=== PATIENT | male | born 1940 | race Caucasian/White ===

== ENCOUNTER 2016-11-05 13:30 | Emergency (ER) | payer OTHER ==
[~2016-11-05] VITALS: Ht 160 cm; Wt 65.8 kg
[~2016-11-05 13:30] MED LIST: AMLODIPINE BESYL5 M1 PO; ANT12.5 PO; CARBIDOPA25 MG PO; LIPI20 PO; METFORMIN HCL1000 MG PO; NOR5 PO; SEROQUEL100 MG PO; SEROQUEL200 MG PO; SERTRALINE HYD100 MG PO; SINEMET 25-1001 TAB PO; TRAZODONE HYDR100 MG PO; ZESTRIL20 MG PO
[2016-11-05 15:21] LABS: BASOPHIL % 0.1 % (0-2); PLATELET COUNT 107 x10^3mcL (130-400); RED CELL DISTRIBUTION WIDTH 13.4 % (11.5-14.5)
[2016-11-05 15:24] LABS: CALCIUM 8.6 mg/dL (8.5-10.1); CARBON DIOXIDE 30.4 mmol/L (21-32); CHLORIDE SERUM 108 mmol/L (98-107); CREATININE SERUM 1.1 mg/dL (0.7-1.3); GLUCOSE SERUM 168 mg/dL (74-106); POTASSIUM SERUM 4.2 mmol/L (3.5-5.1); SODIUM SERUM 143 mmol/L (136-145)
[2016-11-05 15:36] LABS: ALBUMIN 3.7 g/dL (3.4-5.0); ALKALINE PHOSPHATASE 64 U/L (46-116); ALT/SGPT 49 U/L (16-63); AST/SGOT 29 U/L (15-37); BILIRUBIN TOTAL 0.3 mg/dL (0.20-1.00); TOTAL PROTEIN, SERUM 6.6 g/dL (6.4-8.2)
[2016-11-05 16:42] VITALS: BP 146/93
== END 2016-11-05 16:42 | disposition home or self-care (01) ==
LOC: ED 13:30
PROVIDERS: Specialist
DX: R55 Syncope and collapse (principal); R53.1 Weakness; F32.9 Major depressive disorder, single episode, unspecified; D64.9 Anemia, unspecified; I10 Essential (primary) hypertension; E11.9 Type 2 diabetes mellitus without complications
CPT/HCPCS: 36415; 83880

== ENCOUNTER 2017-08-01 20:09 | Emergency (ER) | payer OTHER ==
[~2017-08-01] VITALS: Ht 160 cm; Wt 65.8 kg
[2017-08-01 20:16] VITALS: Ht 160 cm; Wt 65.8 kg
[2017-08-01 20:56] LABS: BASOPHIL % 0.1 % (0-2); RED CELL DISTRIBUTION WIDTH 14.4 % (11.5-14.5)
[2017-08-01 20:59] LABS: PLATELET COUNT 122 x10^3mcL (130-400)
[2017-08-01 21:02] LABS: CALCIUM 8.4 mg/dL (8.5-10.1); CARBON DIOXIDE 27.3 mmol/L (21-32); CHLORIDE SERUM 106 mmol/L (98-107); CREATININE SERUM 1.3 mg/dL (0.7-1.3); GLUCOSE SERUM 194 mg/dL (74-106); POTASSIUM SERUM 3.7 mmol/L (3.5-5.1); SODIUM SERUM 139 mmol/L (136-145)
[2017-08-01 21:07] LABS: ALBUMIN 3.5 g/dL (3.4-5.0); ALKALINE PHOSPHATASE 84 U/L (46-116); ALT/SGPT 45 U/L (16-63); AST/SGOT 44 U/L (15-37); BILIRUBIN TOTAL 0.51 mg/dL (0.20-1.00); TOTAL PROTEIN, SERUM 6.5 g/dL (6.4-8.2)
[2017-08-01 21:59] LABS: microscopic required? YES; urine erythrocyte 2+ (NEGATIVE)
[2017-08-01 22:45] VITALS: BP 132/67
== END 2017-08-01 22:45 | disposition short-term general hospital (02) ==
LOC: ED 20:09
PROVIDERS: Emergency Medicine
DX: S40.021A Contusion of right upper arm, initial encounter (principal); S00.01XA Abrasion of scalp, initial encounter; I10 Essential (primary) hypertension; E11.9 Type 2 diabetes mellitus without complications; F41.9 Anxiety disorder, unspecified; E78.5 Hyperlipidemia, unspecified; W19.XXXA Unspecified fall, initial encounter; Y93.89 Activity, other specified; Y92.89 Other specified places as the place of occurrence of the external cause; Y99.8 Other external cause status
CPT/HCPCS: 36415; 83880; Q0092

== ENCOUNTER 2017-08-27 12:00 | Inpatient (IN) | payer OTHER ==
[~2017-08-27] VITALS: Ht 160 cm; Wt 68.2 kg
[2017-08-27 12:08] VITALS: Ht 160 cm; Wt 68.2 kg
[2017-08-27 13:11] LABS: BASOPHIL % 0.3 % (0-2); PLATELET COUNT 143 x10^3mcL (130-400); RED CELL DISTRIBUTION WIDTH 13.6 % (11.5-14.5)
[2017-08-27 13:51] LABS: CALCIUM 8.7 mg/dL (8.5-10.1); CARBON DIOXIDE 25.1 mmol/L (21-32); CHLORIDE SERUM 110 mmol/L (98-107); CREATININE SERUM 1.3 mg/dL (0.7-1.3); GLUCOSE SERUM 146 mg/dL (74-106); SODIUM SERUM 146 mmol/L (136-145)
[2017-08-27] MEDS ORDERED: ZOLOFT100 MG PO (13:57)
[2017-08-27 13:59] LABS: ALBUMIN 3.5 g/dL (3.4-5.0); ALKALINE PHOSPHATASE 114 U/L (46-116); ALT/SGPT 24 U/L (16-63); AST/SGOT 42 U/L (15-37); BILIRUBIN TOTAL 0.51 mg/dL (0.20-1.00); TOTAL PROTEIN, SERUM 6.7 g/dL (6.4-8.2)
[2017-08-27] MEDS ORDERED: SEROQUEL50 M1 PO ×2 (14:00)
[2017-08-27] MEDS ORDERED: BUSPIRONE HCL5 MG PO (14:01)
[2017-08-27] MEDS ORDERED: GLIMEPIRIDE4 M1 PO (14:01)
[2017-08-27 14:02] LABS: CHOLESTEROL 111 mg/dL (<200)
[2017-08-27] MEDS ORDERED: TRAZODONE50 M1 PO (14:03)
[2017-08-27 15:19] LABS: T3 TOTAL 0.96 ng/mL
[2017-08-27 15:33] LABS: CHOLESTEROL/HDL RATIO 1.9; MAGNESIUM 1.6 mg/dL (1.8-2.4); PHOSPHOROUS 4.1 mg/dL (2.5-4.9)
[2017-08-27 15:45] VITALS: BP 140/71
[2017-08-27 15:48] LABS: FREE T4 0.78 ng/dL (0.76-1.46)
[2017-08-27 15:50] LABS: FREE THYROXINE INDEX 1.4 ug/dL (1.4-4.5)
[2017-08-27 21:24] VITALS: BP 134/79
[2017-08-27 22:49] LABS: UA SPECIFIC GRAVITY >=1.030 (1.005-1.035); microscopic required? YES; urine erythrocyte TRACE (NEGATIVE)
[2017-08-27 22:58] LABS: AMPHETAMINE QUAL UR NONE DETECTED (See below)
[2017-08-28] VITALS (7 sets, daily range): BP systolic 125–182; BP diastolic 63–97
[2017-08-28 07:17] LABS: IRON 44 ug/dL (65-170)
[2017-08-28 07:18] LABS: TOTAL IRON BINDING CAPACITY 191 ug/dL (250-450)
[2017-08-28 08:06] LABS: BASOPHIL % 0.3 % (0-2); PLATELET COUNT 130 x10^3mcL (130-400); RED CELL DISTRIBUTION WIDTH 14.3 % (11.5-14.5)
[2017-08-28 08:22] LABS: RED BLOOD CELLS 3.31 M/mm3 (4.52-5.90)
[2017-08-28 08:25] LABS: CALCIUM 8.3 mg/dL (8.5-10.1); CARBON DIOXIDE 24.2 mmol/L (21-32); CHLORIDE SERUM 113 mmol/L (98-107); CREATININE SERUM 0.9 mg/dL (0.7-1.3); GLUCOSE SERUM 81 mg/dL (74-106); MAGNESIUM 2.1 mg/dL (1.8-2.4); PHOSPHOROUS 2.8 mg/dL (2.5-4.9); SODIUM SERUM 145 mmol/L (136-145)
[2017-08-29 05:54] VITALS: BP 152/79
[2017-08-29 06:32] LABS: BASOPHIL % 0.2 % (0-2); PLATELET COUNT 133 x10^3mcL (130-400); RED CELL DISTRIBUTION WIDTH 14.3 % (11.5-14.5)
[2017-08-29 07:05] LABS: CALCIUM 7.8 mg/dL (8.5-10.1); CARBON DIOXIDE 27.6 mmol/L (21-32); CHLORIDE SERUM 109 mmol/L (98-107); CREATININE SERUM 0.8 mg/dL (0.7-1.3); GLUCOSE SERUM 96 mg/dL (74-106); MAGNESIUM 1.6 mg/dL (1.8-2.4); PHOSPHOROUS 2.9 mg/dL (2.5-4.9); POTASSIUM SERUM 3.8 mmol/L (3.5-5.1); SODIUM SERUM 144 mmol/L (136-145)
[2017-08-29 09:52] VITALS: BP 180/86
[2017-08-29 17:16] VITALS: BP 169/84
[2017-08-29 20:15] VITALS: BP 143/85
[2017-08-30 05:28] VITALS: BP 140/70
[2017-08-30 06:24] LABS: BASOPHIL % 0.2 % (0-2); RED CELL DISTRIBUTION WIDTH 14.3 % (11.5-14.5)
[2017-08-30 06:39] LABS: CALCIUM 8.4 mg/dL (8.5-10.1); CARBON DIOXIDE 30.1 mmol/L (21-32); CHLORIDE SERUM 110 mmol/L (98-107); CREATININE SERUM 0.8 mg/dL (0.7-1.3); GLUCOSE SERUM 129 mg/dL (74-106); PHOSPHOROUS 3.4 mg/dL (2.5-4.9); POTASSIUM SERUM 4.4 mmol/L (3.5-5.1); SODIUM SERUM 146 mmol/L (136-145)
[2017-08-30 07:10] LABS: PLATELET COUNT 129 x10^3mcL (130-400)
[2017-08-30 08:27] VITALS: BP 138/77
[2017-08-30 14:23] VITALS: BP 177/85
[2017-08-30 16:55] VITALS: BP 178/93
[2017-08-30 17:44] VITALS: BP 164/93
[2017-08-30 21:10] VITALS: BP 152/84
[2017-08-31 05:41] VITALS: BP 158/76
[2017-08-31 07:02] LABS: BASOPHIL % 0.4 % (0-2); PLATELET COUNT 146 x10^3mcL (130-400)
[2017-08-31 07:28] LABS: CALCIUM 8.6 mg/dL (8.5-10.1); CARBON DIOXIDE 31.1 mmol/L (21-32); CHLORIDE SERUM 107 mmol/L (98-107); CREATININE SERUM 0.8 mg/dL (0.7-1.3); GLUCOSE SERUM 77 mg/dL (74-106); MAGNESIUM 1.6 mg/dL (1.8-2.4); PHOSPHOROUS 3.1 mg/dL (2.5-4.9); POTASSIUM SERUM 3.5 mmol/L (3.5-5.1); SODIUM SERUM 144 mmol/L (136-145)
[2017-08-31 08:45] VITALS: BP 170/96
[2017-08-31 11:30] VITALS: BP 119/78
[2017-08-31 17:38] VITALS: BP 163/88
[2017-08-31 17:51] VITALS: BP 163/88
[2017-08-31 21:12] VITALS: BP 166/84
[2017-09-01 00:54] VITALS: BP 154/78
[2017-09-01 06:00] VITALS: BP 143/68
[2017-09-01 07:11] LABS: BASOPHIL % 0.3 % (0-2); PLATELET COUNT 165 x10^3mcL (130-400); RED CELL DISTRIBUTION WIDTH 14.4 % (11.5-14.5)
[2017-09-01 07:17] LABS: CALCIUM 9.1 mg/dL (8.5-10.1); CARBON DIOXIDE 32.2 mmol/L (21-32); CHLORIDE SERUM 108 mmol/L (98-107); CREATININE SERUM 0.8 mg/dL (0.7-1.3); GLUCOSE SERUM 103 mg/dL (74-106); PHOSPHOROUS 3.3 mg/dL (2.5-4.9); POTASSIUM SERUM 4.6 mmol/L (3.5-5.1); SODIUM SERUM 145 mmol/L (136-145)
[2017-09-01] MEDS ORDERED: ATIVAN1 MG PO (11:51)
[2017-09-01 12:15] VITALS: BP 143/68
== END 2017-09-01 14:40 | DRG 604 ==
LOC: ED 12:00 → MU 14:34 → DU 14:34 → MU 08-29 11:44 → DU 08-29 11:45 → MU 09-01 14:40
PROVIDERS: Emergency Medicine; Family Medicine
PROC: 0HQ0XZZ Repair Scalp Skin, External Approach (ICD-10-PCS; principal; 2017-08-27)
PROC: 0HQ0XZZ Repair Scalp Skin, External Approach (ICD-10-PCS; 2017-08-27)
DX: S01.01XA Laceration without foreign body of scalp, initial encounter (principal); N17.0 Acute kidney failure with tubular necrosis; E87.0 Hyperosmolality and hypernatremia; F33.2 Major depressive disorder, recurrent severe without psychotic features; E11.51 Type 2 diabetes mellitus with diabetic peripheral angiopathy without gangrene; E86.0 Dehydration; E83.42 Hypomagnesemia; I10 Essential (primary) hypertension; F41.9 Anxiety disorder, unspecified; D64.9 Anemia, unspecified; E78.5 Hyperlipidemia, unspecified; F03.90 Unspecified dementia, unspecified severity, without behavioral disturbance, psychotic disturbance, mood disturbance, and anxiety; G47.00 Insomnia, unspecified; Z91.81 History of falling; Z68.26 Body mass index [BMI] 26.0-26.9, adult; Z86.73 Personal history of transient ischemic attack (TIA), and cerebral infarction without residual deficits; Z98.2 Presence of cerebrospinal fluid drainage device; E66.3 Overweight; W18.39XA Other fall on same level, initial encounter; Y93.89 Activity, other specified; Y92.018 Other place in single-family (private) house as the place of occurrence of the external cause
CPT/HCPCS: 82962; 83880; 84439; 97110-GP; 97116-GP; 97530-GP; 97535-GP; G0480; J0360; J2060; J2916; J3475; J3486; J3490; J7030; Q0092

== ENCOUNTER 2017-09-29 11:21 | Emergency (ER) | payer OTHER ==
[~2017-09-29] VITALS: Ht 160 cm; Wt 55.8 kg
[~2017-09-29 11:21] MED LIST changes: +ATIVAN1 MG PO; +BUSPIRONE HCL5 MG PO; +GLIMEPIRIDE4 M1 PO; +SEROQUEL50 M1 PO; +TRAZODONE50 M1 PO; +ZOLOFT100 MG PO
[2017-09-29 12:05] VITALS: BP 152/71
== END 2017-09-29 12:05 | disposition home or self-care (01) ==
LOC: ED 11:21
DX: Z48.02 Encounter for removal of sutures (principal); I10 Essential (primary) hypertension; G45.9 Transient cerebral ischemic attack, unspecified; E11.9 Type 2 diabetes mellitus without complications; F41.9 Anxiety disorder, unspecified

== ENCOUNTER 2018-11-18 17:35 | Emergency (ER) | payer OTHER ==
[~2018-11-18] VITALS: Ht 157.5 cm; Wt 65.8 kg
[2018-11-18 17:47] VITALS: Ht 157.5 cm; Wt 65.8 kg
[2018-11-18 20:00] VITALS: BP 157/93
== END 2018-11-18 20:00 | disposition home or self-care (01) ==
LOC: ED 17:35
DX: F41.0 Panic disorder [episodic paroxysmal anxiety] (principal); E11.9 Type 2 diabetes mellitus without complications; I10 Essential (primary) hypertension; E78.00 Pure hypercholesterolemia, unspecified; F32.9 Major depressive disorder, single episode, unspecified

== ENCOUNTER 2020-01-11 06:25 | Emergency (ER) | payer OTHER ==
[~2020-01-11] VITALS: Ht 157.5 cm; Wt 59.0 kg
[2020-01-11 06:30] VITALS: Ht 157.5 cm; Wt 59.0 kg
[2020-01-11 07:12] LABS: BASOPHIL % 0.3 % (0-2); PLATELET COUNT 111 x10^3mcL (130-400); RED CELL DISTRIBUTION WIDTH 13.9 % (11.5-14.5)
[2020-01-11 07:40] LABS: CALCIUM 8.7 mg/dL (8.5-10.1); CARBON DIOXIDE 29.1 mmol/L (21-32); CHLORIDE SERUM 100 mmol/L (98-107); CREATININE SERUM 1.3 mg/dL (0.7-1.3); GLUCOSE SERUM 170 mg/dL (74-106); SODIUM SERUM 134 mmol/L (136-145)
[2020-01-11 07:44] LABS: ALBUMIN 3.7 g/dL (3.4-5.0); ALKALINE PHOSPHATASE 60 U/L (46-116); ALT/SGPT 23 U/L (16-63); AST/SGOT 23 U/L (15-37); BILIRUBIN TOTAL 0.35 mg/dL (0.20-1.00); TOTAL PROTEIN, SERUM 6.7 g/dL (6.4-8.2)
[2020-01-11] MEDS ORDERED: ZESTRIL20 MG PO (08:18)
[2020-01-11] MEDS ORDERED: FORTAMET500 M1 PO (08:18)
[2020-01-11] MEDS ORDERED: SIN25100 PO (08:18)
[2020-01-11] MEDS ORDERED: ARI10 PO (08:19)
[2020-01-11 13:26] VITALS: BP 148/70
== END 2020-01-11 13:26 | disposition home or self-care (01) ==
LOC: ED 06:25
PROVIDERS: Emergency Medicine
DX: S53.105A Unspecified dislocation of left ulnohumeral joint, initial encounter (principal); I10 Essential (primary) hypertension; E16.2 Hypoglycemia, unspecified; W18.30XA Fall on same level, unspecified, initial encounter; Y93.89 Activity, other specified; Y92.89 Other specified places as the place of occurrence of the external cause; Y99.8 Other external cause status
CPT/HCPCS: 82962; 83880; 90715; Q0092